=== PATIENT | female | born 1960 | race Two or more races ===

== ENCOUNTER 2017-10-24 11:15 | Outpatient (CLI) | payer OTHER ==
[~2017-10-24 11:15] MED LIST: LEVAQUIN500 MG PO
== END 2017-10-24 15:44 | disposition home or self-care (01) ==
LOC: RAD 11:15
DX: M25.561 Pain in right knee (principal); M25.551 Pain in right hip

== ENCOUNTER 2018-04-21 15:37 | Outpatient (CLI) | payer OTHER | END 2018-04-21 15:48 | disposition home or self-care (01) | LOC: RAD 501 15:37 | DX: M25.551 Pain in right hip (principal); M54.5 Low back pain ==

== ENCOUNTER → 2018-11-18 | Outpatient (CLI) | payer OTHER | END | disposition home or self-care (01) | LOC: MAMO-SONO 15:20 | DX: N64.4 Mastodynia (principal) ==

== ENCOUNTER → 2019-08-10 | Outpatient (CLI) | payer OTHER | END | disposition home or self-care (01) | LOC: RAD 16:10 | DX: M25.561 Pain in right knee (principal); M17.11 Unilateral primary osteoarthritis, right knee; M54.2 Cervicalgia; M54.5 Low back pain ==

== ENCOUNTER 2021-03-15 12:35 | Outpatient (CLI) | payer OTHER | END 2021-03-15 18:27 | disposition home or self-care (01) | LOC: RAD 12:35 | PROVIDERS: ATTEND Orthopaedic Surgery | DX: M25.561 Pain in right knee (principal) ==

== ENCOUNTER 2023-10-02 11:29 | Outpatient (CLI) | payer OTHER | END 2023-10-02 11:44 | disposition home or self-care (01) | LOC: RAD 11:29 | PROVIDERS: ATTEND Orthopaedic Surgery | DX: M79.641 Pain in right hand (principal); M79.642 Pain in left hand ==